=== PATIENT | female | born 1990 | race Caucasian/White ===

== ENCOUNTER 2017-02-07 12:23 | Emergency (ER) | payer MEDICAID ==
[~2017-02-07] VITALS: Ht 162.6 cm; Wt 54.0 kg
[2017-02-07 12:32] VITALS: BP 144/69
== END 2017-02-07 13:47 | disposition home or self-care (01) ==
LOC: ED 13:15
DX: B35.3 Tinea pedis (principal)
CPT/HCPCS: 99282

== ENCOUNTER 2017-12-30 09:26 | Emergency (ER) | payer MEDICAID ==
[~2017-12-30] VITALS: Ht 162.6 cm; Wt 55.9 kg
[2017-12-30 09:33] VITALS: BP 133/76
[2017-12-30] MEDS ORDERED: CEFTRIAXONE 1,000 MG ONE (10:57)
[2017-12-30] MEDS ORDERED: AZITHROMYCIN 500 MG TABLET ONE (10:57)
[2017-12-30] MEDS ORDERED: AZITHROMYCIN 500 MG TABLET PO ONE (11:00)
[2017-12-30] MEDS ORDERED: CEFTRIAXONE 1,000 MG IM ONE (11:00)
[2017-12-30] MEDS ORDERED: PLEASE ENTER ALLERGIES MC SCH (11:00)
== END 2017-12-30 11:31 | disposition home or self-care (01) ==
LOC: ED 10:06
DX: J18.0 Bronchopneumonia, unspecified organism (principal); H66.001 Acute suppurative otitis media without spontaneous rupture of ear drum, right ear; T16.2XXA Foreign body in left ear, initial encounter; F17.200 Nicotine dependence, unspecified, uncomplicated
CPT/HCPCS: 71046; 96372; 99284; 99406; J0696

== ENCOUNTER 2019-06-11 11:48 | Emergency (ER) | payer MEDICAID ==
[~2019-06-11] VITALS: Ht 162.6 cm; Wt 54.6 kg
[2019-06-11 11:49] VITALS: BP 105/69
--- NOTE | 2019-06-11 12:00 | NUR ---
pt presents to ED with c/o cough, mask in place. pt to xray at this time, gait steady.
--- NOTE | 2019-06-11 12:42 | NUR ---
pt given dc instructions and script, educated regarding rx for tessalon and albuterol. pt a&o, resps even and unlabored. nadn. pt amb to dc desk with steady gait.
== END 2019-06-11 12:43 | disposition home or self-care (01) ==
LOC: ED 12:30
DX: J06.9 Acute upper respiratory infection, unspecified (principal); B34.9 Viral infection, unspecified; F17.200 Nicotine dependence, unspecified, uncomplicated
CPT/HCPCS: 71046; 99283